=== PATIENT | female | born 1980 | race Asian ===

== ENCOUNTER 2016-06-15 07:31 | Emergency (ER) | payer OTHER ==
[~2016-06-15] VITALS: Ht 167.6 cm; Wt 94.3 kg
[2016-06-15 10:44] VITALS: BP 168/82; TEMP 98
== END 2016-06-15 10:45 | disposition home or self-care (01) ==
LOC: ED 07:31
DX: M79.675 Pain in left toe(s) (principal); L03.032 Cellulitis of left toe
CPT/HCPCS: 99283

== ENCOUNTER 2017-02-06 06:04 | Emergency (ER) | payer OTHER ==
[~2017-02-06] VITALS: Ht 165.1 cm; Wt 90.7 kg
[2017-02-06 06:05] VITALS: TEMP 98.6
[2017-02-06 07:48] VITALS: BP 185/100
== END 2017-02-06 07:50 | disposition home or self-care (01) ==
LOC: ED 06:04
PROC: 0H9FXZZ Drainage of Right Hand Skin, External Approach (ICD-10-PCS; principal; 2017-02-06)
DX: L03.011 Cellulitis of right finger (principal)
CPT/HCPCS: 87070; 87205; 99282; J2001

== ENCOUNTER 2017-07-07 13:22 | Observation (INO) | payer OTHER ==
[~2017-07-07] VITALS: Ht 165.1 cm; Wt 84.4 kg
[2017-07-07 13:24] VITALS: BP 172/113; TEMP 98
[2017-07-07 14:05] LABS: PLATELET COUNT 245 K/uL (152-353)
[2017-07-07 14:11] LABS: POTASSIUM 3.8 mmol/L (3.6-5.2); SODIUM 132 mmol/L (136-145)
[2017-07-07 15:50] VITALS: BP 146/91
[2017-07-07 17:16] VITALS: BP 168/89; TEMP 98.9; Ht 165.1 cm; Wt 84.4 kg
[2017-07-07 20:22] VITALS: BP 146/88; TEMP 98.5
[2017-07-08] VITALS: BP 157/87; TEMP 100.6
[2017-07-08 04:00] VITALS: BP 171/88; TEMP 99.4
== END 2017-07-08 16:21 | disposition home or self-care (01) ==
LOC: ED 13:22 → MED/SURG 16:15
PROVIDERS: Emergency Medicine; ADMIT Specialist
DX: R20.0 Anesthesia of skin (principal); I10 Essential (primary) hypertension
CPT/HCPCS: 36415; 36591; 80053; 80307; 81000; 81025; 82550; 84484; 85027; 85610; 85730; 93005; 96366; 99220; 99283; G0378

== ENCOUNTER 2020-06-24 08:29 | Emergency (ER) | payer OTHER ==
[~2020-06-24] VITALS: Ht 167.6 cm; Wt 90.7 kg
[2020-06-24 08:32] VITALS: TEMP 98.2
[2020-06-24 09:18] LABS: PLATELET COUNT 312 K/uL (152-353)
[2020-06-24 09:22] LABS: POTASSIUM 3.4 mmol/L (3.6-5.2); SODIUM 138 mmol/L (136-145)
[2020-06-24 10:05] VITALS: BP 101/56
== END 2020-06-24 10:15 | disposition home or self-care (01) ==
LOC: ED 08:29
PROVIDERS: Emergency Medicine Emergency Medical Services
DX: M54.12 Radiculopathy, cervical region (principal)
CPT/HCPCS: 36415; 80053; 84484; 85027; 93005; 96374; 99284; J1885

== ENCOUNTER 2020-10-28 13:51 | Emergency (ER) | payer OTHER ==
[~2020-10-28] VITALS: Ht 167.6 cm; Wt 90.7 kg
[2020-10-28 13:57] VITALS: TEMP 97.2
[2020-10-28 14:48] VITALS: BP 142/88
== END 2020-10-28 14:49 | disposition home or self-care (01) ==
LOC: ED 13:51
DX: M79.18 Myalgia, other site (principal); V89.2XXA Person injured in unspecified motor-vehicle accident, traffic, initial encounter; Y92.89 Other specified places as the place of occurrence of the external cause
CPT/HCPCS: 99281

== ENCOUNTER 2021-08-23 20:45 | Emergency (ER) | payer OTHER ==
[~2021-08-23] VITALS: Ht 165.1 cm; Wt 90.7 kg
[2021-08-23 22:04] LABS: PLATELET COUNT 296 K/uL (152-353)
[2021-08-23 22:07] LABS: POTASSIUM 3.9 mmol/L (3.6-5.2)
[2021-08-24 00:03] VITALS: BP 136/84; TEMP 97.5
== END 2021-08-24 00:03 | disposition home or self-care (01) ==
LOC: ED 20:45
PROVIDERS: Emergency Medicine Emergency Medical Services
DX: S06.0X0A Concussion without loss of consciousness, initial encounter (principal); S20.219A Contusion of unspecified front wall of thorax, initial encounter; S16.1XXA Strain of muscle, fascia and tendon at neck level, initial encounter; V89.2XXA Person injured in unspecified motor-vehicle accident, traffic, initial encounter; Y92.89 Other specified places as the place of occurrence of the external cause
CPT/HCPCS: 36415; 80048; 81000; 81025; 84484; 85027; 93005; 96360; 96361; 96374; 96375; 99284; J1885; J2270; J2405; Q9963

== ENCOUNTER 2021-09-07 13:53 | Emergency (ER) | payer OTHER ==
[~2021-09-07] VITALS: Ht 165.1 cm; Wt 90.7 kg
[2021-09-07 13:56] VITALS: BP 135/69; TEMP 97.1
== END 2021-09-07 15:00 | disposition home or self-care (01) ==
LOC: ED 13:53
DX: R20.2 Paresthesia of skin (principal)
CPT/HCPCS: 99282